=== PATIENT | female | born 1960 | race Caucasian/White ===

== ENCOUNTER 2017-01-13 08:01 | Emergency (ER) | payer BC ==
[~2017-01-13] VITALS: Ht 157.5 cm; Wt 60.0 kg
[2017-01-13 08:04] VITALS: Ht 157.5 cm; Wt 60.0 kg
[2017-01-13] MEDS ORDERED: MECL12.574 PO (09:03)
[2017-01-13] MEDS ORDERED: MECLIZINE 12.5 MG TAB PO ONE (09:30)
--- NOTE | 2017-01-13 09:35 | ERD ---
ER Documentation Chief Complaint Date/Time DATE: 01/13/17 TIME: 09:31 Chief Complaint bib family for dizziness with nausea since saturday HPI Patient is a 56-year-old female who presents with 3 days of gradual onset, intermittent, mild to moderate dizziness described as a spinning sensation. The patient reports also initially having a mild pain in the right ear. Patient states that her's dizziness is worse with head movements. She has had mild, gradual onset, right-sided headache that resolved with ibuprofen. She is also felt nauseous and generalized weakness. Patient denies diplopia, difficulty speaking or swallowing, difficulty with gait, focal weakness or numbness. Patient denies visual disturbance. Patient denies fever, tinnitus, chest pain, shortness of breath, abdominal pain, back pain, vomiting or diarrhea , dysuria or hematuria. Patient noticed that her blood pressure was elevated, but she has never had hypertension before. ROS All systems reviewed and are negative except as per history of present illness. Medications Home Meds Active Scripts Meclizine Hcl* (Antivert*) 12.5 Mg Tab, 25 MG PO Q6H Y for DIZZINESS, #30 TAB Prov:DINORAH HERNANDEZ MD 01/13/17 PMhx/Soc Past medical history: Denies Past surgical history: Denies Social history: Smokes cigarettes, denies alcohol or illicit drugs Medical and Surgical Hx: pt denies Medical Hx, pt denies Surgical Hx Hx Alcohol Use: No Hx Substance Use: No Hx Tobacco Use: No Smoking Status: Never smoker FmHx Family History: No coronary disease, No diabetes Physical Exam Vitals Vital Signs Date Time Temp Pulse Resp B/P Pulse Ox O2 Delivery O2 Flow Rate FiO2 01/13/17 08:04 97.9 66 18 170/88 98 Physical Exam Const: Alert, no acute distress Head: Atraumatic Eyes: Normal Conjunctiva, no pallor, no icterus ENT: Normal External Ears, Nose and Mouth. Moist mucous membranes Neck: Full range of motion..~ No meningismus. Resp: Clear to auscultation bilaterally, no wheezes, no rales Cardio: Regular rate and rhythm, no murmurs Abd: Soft, non tender, non distended. Normal bowel sounds Skin: No petechiae or rashes Back: No midline or flank tenderness Ext: No cyanosis, or edema Neur: Awake and alert, cranial nerves II through XII intact bilaterally, no diplopia. Strength and sensation intact throughout 4 extremities. No pronator drift, no dysmetria, normal Renay. Mild nystagmus on leftward gaze. Psych: Normal Mood and Affect Results 24 hrs Current Medications Medications (Trade) Dose Ordered Sig/Meño Route PRN Reason Start Time Stop Time Status Last Admin Dose Admin Meclizine HCl (Antivert) 25 mg ONCE ONCE PO 01/13/17 09:30 01/13/17 09:31 DC 01/13/17 09:16 Procedures/MDM MDM: Patient is a 56-year-old female with no past medical history who presents with 3 days of intermittent vertigo. There are no associated symptoms or physical exam findings that are concerning for [place] etiology. I will give the patient a prescription for meclizine, and advised her to follow-up closely with her PMD if her symptoms do not resolve. Advised her to return to the ER immediately for any new or worsening symptoms. The patient also has an elevated blood pressure reading, but no history of hypertension. I have advised her to follow-up with your PMD in 48 hours for repeat blood pressure check. I do not believe that the patient's symptoms are result of her elevated blood pressure, and more likely are a consequence of them. Therefore urgent lowering of blood pressure was not undertaken. Symptoms are consistent with a peripheral etiology for vertigo. Departure Diagnosis: Primary Impression: Vertigo Additional Impression: Elevated blood pressure reading Condition: Stable Patient Instructions: Vertigo, Unspecified Additional Instructions: Follow-up with your PMD in 2-3 days for blood pressure recheck and referral to ENT if symptoms not resolved. Return to the ER immediately for new or worsening symptoms. Drink plenty of fluids. DINORAH HERNANDEZ MD Jan 13, 2017 09:35
[2017-01-13 09:50] VITALS: BP 168/87; PULSE 58; RESP 17
== END 2017-01-13 09:51 | disposition home or self-care (01) ==
LOC: E/R 08:01
DX: R42 Dizziness and giddiness (principal); R03.0 Elevated blood-pressure reading, without diagnosis of hypertension; F17.210 Nicotine dependence, cigarettes, uncomplicated
CPT/HCPCS: Z7502; Z7610; 99283